=== PATIENT | female | born 1940 | race Caucasian/White ===

== ENCOUNTER 2016-05-26 16:13 | Emergency (ER) | payer MEDICARE ==
[2016-05-26 16:28] VITALS: TEMP 98.4; BMI 24.5
--- NOTE | 2016-05-26 17:50 | DIRPT ---
CLINICAL DATA: Short of breath. Fall 2 days ago EXAM: CHEST 2 VIEW COMPARISON: None. FINDINGS: The heart size and mediastinal contours are within normal limits. Both lungs are clear. The visualized skeletal structures are unremarkable. IMPRESSION: No active cardiopulmonary disease. Electronically Signed By: John Farr M.D. On: 05/26/2016 17:48
--- NOTE | 2016-05-26 17:52 | DIRPT ---
CLINICAL DATA: Patient status post fall with right shoulder pain. Initial encounter. EXAM: RIGHT SHOULDER - 2+ VIEW COMPARISON: None. FINDINGS: There is no evidence of fracture or dislocation. There is no evidence of arthropathy or other focal bone abnormality. Soft tissues are unremarkable. IMPRESSION: Negative. Electronically Signed By: Derik Mccabe M.D. On: 05/26/2016 17:49
--- NOTE | 2016-05-26 18:52 | EDPRACDOC ---
- General Information Chief Complaint: Back Pain Stated Complaint: BACK PAIN Time Seen by Provider: 05/26/16 16:44 Information Source: Patient Mode Of Arrival: Ambulance Home Medications: Home Medications Advair Unknown Dose 1 puff INH DAILY 05/26/16 Albuterol Sulfate [Proair Hfa] 2 puff INH Q4-6H PRN 05/26/16 Amlodipine [Norvasc] 10 mg PO DAILY 05/26/16 Atorvastatin Calcium [Lipitor] 80 mg PO DAILY 05/26/16 CloNIDine (Antihypertensive) [Catapres-Tts] 1 patch TOP WEEKLY 05/26/16 Clonidine Unknown Dose 1 tab PO QHS 05/26/16 Famotidine [Pepcid] 40 mg PO BID 05/26/16 Fluticasone/Vilanterol [Breo Ellipta 100-25 Mcg INH] 1 puff INH DAILY 05/26/16 Hydrocodone Bit/Acetaminophen [Hydrocodon-Acetaminophen 5-325] 1 - 2 tab PO Q6H PRN #7 tab 05/26/16 Lorazepam [Ativan] 0.5 mg PO HS 05/26/16 Melatonin/Pyridoxine [Melatonin 3 mg Tablet] 1 tab PO QHS 05/26/16 Metoprolol Tartrate 25 mg PO BID 05/26/16 Polyethylene Glycol 3350 [Miralax] 17 gm PO DAILY 05/26/16 Potassium Chloride [Klor-Con M20] 20 meq PO BID 05/26/16 Rivaroxaban [Xarelto] 15 mg PO DAILY 05/26/16 - History of Present Illness Onset: 4 days Pain Location: Reports: Right, Thoracic Pain Radiates To: Reports: Shoulder Pain Caused By: Reports: Fall Circumstances: Reports: Fall Relevant History: Denies: Abdominal aneurysm, Arthiritis, Cancer, Chronic back pain, Gallbladder disease, Pancreatitis, Pyelonephritis, Urolithiasis, UTI, None , RI, O Pain Quality: Reports: Aching, Sharp Worsened By: Reports: Movement, Twisting Associated Signs and Symptoms: Reports: None ED Past Medical History - History Reviewed Yes Nurses notes reviewed and agree except as marked - Patient Medical History Neurological History: Reports: Cerebrovascular Accident Cardiac History: Reports: Hypertension Psychological History: Reports: Depression - Social Medical History Smoking Status: Never smoker EDM Review of Systems - Review of Systems ROS Negative Except as Marked: Yes All systems reviewed and were negative except as marked - Physical Exam Constitutional: No apparent distress, Alert Last recorded Vital Signs: Last Vital Signs Temp 98.4 F 05/26/16 16:26 Pulse 70 05/26/16 18:00 Resp 18 05/26/16 18:00 BP 116/69 05/26/16 18:00 Pulse Ox 96 05/26/16 18:00 Oxygen Pulse Oxygen Saturation 96 O2 Device Room Air Oxygen Flow Rate Fraction of Inspired Oxygen ( FIO2) - HEENT Oropharynx: Normal - Respiratory/Cardiovascular Respiratory: Normal - CTA Cardiovascular: Normal - GI Palpation: Normal Tenderness: Non tender - Musculoskeletal Back: Abrasion (RIGHT UPPER SCAPULAR AREA APPROX 4X6CM. NO ULCERS OR ESCARS. DOES NOT APPEAR HERPETIC.), Ecchymosis. negative: Laceration, Thoracic Step-off , Lumbar Step-off, Thoracic TTP, Lumbar TTP Extremities: Normal - Neurologic Memory Impaired: Normal Motor Function: Normal Mood Description: Normal Thought: Coherent Perception: Normal Neurologic Comment: Right Left Shoulder Abduction 5/5 5/5 Shoulder Adduction 5/5 5/5 Bicept Flexion 5/5 5/5 Tricept Extention 5/5 5/5 Wrist Dorsiflexion 5/5 5/5 Wrist Volarflexion 5/5 5/5 SENSATION NORMAL OVER THE RADIAN, ULNAR, MEDIAN, AXILLARY NERVE DISTRIBUTION ON THE RIGHT. - Departure Condition: Stable Final Diagnosis: Pain in thoracic spine Contusion of right shoulder Qualifiers: Encounter type: initial encounter Qualified Code(s): S40.011A - Contusion of right shoulder, initial encounter Instructions: Narcotic Pain Management (ED), Thoracic (Lumbar) Strain Education/Counseling Given To: Patient Education/Counseling Given Regarding: Diagnosis, Treatment, Prognosis Referrals: None,No Provider [Primary Care Provider] - One Week Prescriptions: New Hydrocodone Bit/Acetaminophen [Hydrocodon-Acetaminophen 5-325] 1 - 2 tab PO Q6H PRN #7 tab PRN Reason: Pain No Action Melatonin/Pyridoxine [Melatonin 3 mg Tablet] 1 tab PO QHS Advair Unknown Dose 1 puff INH DAILY Rivaroxaban [Xarelto] 15 mg PO DAILY Polyethylene Glycol 3350 [Miralax] 17 gm PO DAILY Lorazepam [Ativan] 0.5 mg PO HS Fluticasone/Vilanterol [Breo Ellipta 100-25 Mcg INH] 1 puff INH DAILY Famotidine [Pepcid] 40 mg PO BID Potassium Chloride [Klor-Con M20] 20 meq PO BID Metoprolol Tartrate 25 mg PO BID CloNIDine (Antihypertensive) [Catapres-Tts] 1 patch TOP WEEKLY Atorvastatin Calcium [Lipitor] 80 mg PO DAILY Albuterol Sulfate [Proair Hfa] 2 puff INH Q4-6H PRN PRN Reason: Shortness Of Breath Amlodipine [Norvasc] 10 mg PO DAILY Clonidine Unknown Dose 1 tab PO QHS
[2016-05-26] MEDS ORDERED: HYDROCODONE 5 MG/ACETAMIN 325 MG TAB PO ONE (18:54)
[2016-05-26 20:18] VITALS: BP 135/85; PULSE 91
== END 2016-05-26 20:16 | disposition home or self-care (01) ==
LOC: ED 16:13
DX: M54.6 Pain in thoracic spine (principal); S40.011A Contusion of right shoulder, initial encounter; X58.XXXA Exposure to other specified factors, initial encounter; Y93.9 Activity, unspecified
CPT/HCPCS: 71020; 73030; 99284; A9270; J3490